=== PATIENT | female | born 1960 | race Caucasian/White ===

== ENCOUNTER 2018-04-04 18:26 | Emergency (ER) | payer OTHER, SELFPAY ==
[2018-04-04 18:27] VITALS: BP 137/61; PULSE 64; RESP 18; TEMP 36.5; O2SAT 97; BMI 24.3
--- NOTE | 2018-04-04 19:52 | EKG12_ITS ---
Test Reason : BACK Blood Pressure : / mmHG Vent. Rate : 052 BPM Atrial Rate : 052 BPM P-R Int : 156 ms QRS Dur : 074 ms QT Int : 450 ms P-R-T Axes : 055 053 041 degrees QTc Int : 418 ms Sinus bradycardia Otherwise normal ECG Confirmed by LESLY MAGUIRE ([id number]), supervising film or videotape editor ZHOU ROSA ([id number]) on 04/09/2018 8:47:24 AM Referred By: GAEL Confirmed By:LESLY MAGUIRE
--- NOTE | 2018-04-04 19:53 | CT_ITS ---
STUDY: CTA CHEST REASON FOR EXAM: Female, 58 years old. Back pain. RADIATION DOSAGE (If Supplied By Facility): CTDIvol = ( 9.168 ) mGy, DLP = ( 445.59 ) mGycm TECHNIQUE: The examination was performed with the intravenous administration of 75ML ml of Isovue 370 contrast material. Post-processing of the angiographic images was performed, with multiplanar reformation and 3D reconstruction. Individualized dose optimization techniques were used for this CT. COMPARISON: None. FINDINGS: Normal enhancement of the main pulmonary artery and right and left pulmonary arteries. Normal enhancement of the bilateral peripheral pulmonary arteries. There is no demonstrated pulmonary embolism. Normal thoracic aorta and visualized great vessels. There is no demonstrated aortic dissection. Normal heart and pericardium. Normal mediastinum. Normal hilar regions. Normal visualized trachea and bronchi. The lungs are hyper expanded, with flattening of the hemidiaphragms. Evidence for mild centrilobular emphysema. Normal pleura. Normal chest wall structures. Normal osseous structures. Normal visualized upper abdomen. CT/CTA Chest W/WO Contrast IMPRESSION: Normal CTA chest examination, without a demonstrated pulmonary embolism or arterial dissection. No evidence of acute chest disease. Electronically Signed: Zaki Alberto MD at 21:31 EDT , Service support ,
--- NOTE | 2018-04-04 19:55 | ED.DCSUM_ITS ---
- ER Visit Summary Date of Service: 04/04/18 Chief Complaint: Back pain History of Present Illness: The patient is a 58 F presenting with back pain. She states it started on Sunday. Pain is in her right mid back. She denies any trauma. 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 She has had pain persistently in her right mid back. She has tried [place] at home. She is in pain management for her lower back. She has not had these symptoms before. She denies bowel or bladder incontinence. Denies numbness or weakness. Denies fever. Denies chest pain or shortness of breath. Denies other complaints. Physical Examination: Vitals are stable. Patient is afebrile. Alert no acute distress. HEENT exam is unremarkable. Neck is supple. Lungs are clear and equal bilaterally. Heart is regular rate and rhythm. Abdomen is soft nontender nondistended. Back: Right paraspinal thoracic muscle tenderness, no midline tenderness Extremities are unremarkable. Skin is warm and dry. No focal neurologic deficit. Normal strength and sensation Remainder of exam is unremarkable. Emergency Department Course and Treatment: Patient is given Dilaudid, Zofran IV. EKG is sinus rate of 73 with no acute ischemic changes. CBC, chemistries unremarkable other than potassium 3.3. Troponin is negative. CTA chest shows no acute process. Patient feels improved on reevaluation. She states she continues to have pain but is much improved. She was given Valium and KCl orally. On reevaluation, patient is now requesting discharge. She states she feels improved. She is given a prescription for flexeril and naprosyn. She is advised to follow-up with her primary care physician. Advised return to the ED for worsening complaints. Disposition: Discharge home Impression: Back spasm This note was generated with PowerFile dictation software. It may contain incorrect words, spelling, and punctuation that were not noted in review of the chart prior to signing ED Disposition - Plan for ED Patient: Chief Complaint: Back Instructions: ED Spasm Back No Trauma Prescriptions: Naproxen [Naprosyn] 500 mg PO BID PRN #20 tablet Cyclobenzaprine [Flexeril] 10 mg PO TID PRN #20 tablet PRN Reason: Muscle Spasm Referrals: Francheska Galvez MD [Primary Care Provider] -
[2018-04-04] MEDS: HYDROmorphone 1 MG/ML Syringe IV (20:09)
[2018-04-04] MEDS: Ondansetron 4 MG/2 ML Vial IV (20:09)
[2018-04-04 20:33] LABS: Absolute Lymphocyte Count 1.42 X10^3/ul (0.83-4.51); Absolute Neutrophil Count 8.1 X10^3/uL (2.0-7.7); Basophil# 0.02 X10^3/uL; Basophil% 0.2 % (0-1); Eosinophil# 0.04 X10^3/uL; Eosinophils% 0.4 % (0-5); Hematocrit 40.7 % (37-47); Hemoglobin 13.5 g/dl (12.0-15.0); Lymphocyte # 1.42 X10^3/ul (4.0); Lymphocyte % 13.5 % (19-41); Mean Corp Hgb Conc 33.2 g/gl (32-36); Mean Corpuscular Hgb 30.1 pg (27.0-32.0); Mean Corpuscular Volume 90.6 fL (81-99); Mean Platelet Vol. 9.5 fl (6.2-12.0); Monocyte# 0.86 X10^3/uL; Monocyte% 8.2 % (0-10); Neutrophil # 8.13 X10^3/uL (2.7-7.7); Neutrophil % 77.6 % (47-70); Platelet Count 202 K/mm3 (150-450); RBC Distribution Width CV 12.8 % (11.6-14.6); RBC Distribution Width SD 41.8 fl (35.1-43.9); Red Blood Count 4.49 M/mm3 (4.2-5.4); White Blood Count 10.5 K/mm3 (4.4-11.0)
[2018-04-04 20:36] LABS: POSITIVE COUNT NO; POSITIVE DIFFERENTIAL NO; POSITIVE MORPHOLOGY NO
[2018-04-04 20:55] LABS: Anion Gap 5 (5-15); BUN 12 mg/dL (7-18); BUN/Creat Ratio 18.3 RATIO (10-20); Chloride 102 mmol/L (98-107); Creatinine, Serum 0.65 mg/dL (0.55-1.02); EST Glomerular Filtration Rate 98 mL/min (>60); Est Glom Filt Rate - Afr Amer 119 mL/min (>60); Estimated Creatinine Clearance 82.82 ml/min; Glucose 109 mg/dL (74-106); Potassium 3.3 mmol/L (3.5-5.1); Sodium Level 136 mmol/L (136-145)
[2018-04-04 20:59] VITALS: RESP 14
[2018-04-04] MEDS: diazePAM 5 MG Tablet PO (21:44)
[2018-04-04 22:00] VITALS: BP 132/62; PULSE 58; RESP 16; O2SAT 97
--- NOTE | 2018-04-04 22:55 | ED.DEP ---
ED Disposition - Plan for ED Patient: Chief Complaint: Back Instructions: ED Spasm Back No Trauma Prescriptions: Naproxen [Naprosyn] 500 mg PO BID PRN #20 tablet Cyclobenzaprine [Flexeril] 10 mg PO TID PRN #20 tablet PRN Reason: Muscle Spasm Referrals: Francheska Galvez MD [Primary Care Provider] -
[2018-04-04 23:09] VITALS: BP 130/79; PULSE 60; RESP 16; O2SAT 99
== END 2018-04-04 23:10 | disposition home or self-care (01) ==
LOC: ED 21:44
PROVIDERS: Emergency Provider Emergency Medicine; Family Provider Family Medicine; PCP Family Medicine
DX: M62.830 Muscle spasm of back (principal); M54.9 Dorsalgia, unspecified
CPT/HCPCS: 71275; 80048; 84484; 85025; 93005; 96374; 96375; 99285; Q9967; A4216; J2405

== ENCOUNTER → 2018-07-22 14:09 | Outpatient (CLI) | payer OTHER, SELFPAY ==
[2018-07-22 16:02] LABS: Absolute Lymphocyte Count 1.98 X10^3/ul (0.83-4.51); Basophil# 0.03 X10^3/uL; Basophil% 0.5 % (0-1); Eosinophil# 0.09 X10^3/uL; Eosinophils% 1.4 % (0-5); Hematocrit 40.2 % (37-47); Hemoglobin 13.8 g/dl (12.0-15.0); Lymphocyte # 1.98 X10^3/ul (4.0); Mean Corp Hgb Conc 34.3 g/gl (32-36); Mean Corpuscular Hgb 30.5 pg (27.0-32.0); Mean Corpuscular Volume 88.9 fL (81-99); Mean Platelet Vol. 10.5 fl (6.2-12.0); Monocyte# 0.54 X10^3/uL; Monocyte% 8.2 % (0-10); Neutrophil # 3.96 X10^3/uL (2.7-7.7); Neutrophil % 59.7 % (47-70); Platelet Count 235 K/mm3 (150-450); RBC Distribution Width CV 12.3 % (11.6-14.6); RBC Distribution Width SD 39.5 fl (35.1-43.9); Red Blood Count 4.52 M/mm3 (4.2-5.4); White Blood Count 6.6 K/mm3 (4.4-11.0)
[2018-07-22 16:03] LABS: POSITIVE COUNT NO; POSITIVE DIFFERENTIAL NO; POSITIVE MORPHOLOGY NO
[2018-07-22 16:30] LABS: ALB/GLOB Ratio 1.3 RATIO (0.9-2.4); AST(SGOT) 9 U/L (15-37); Alanine Aminotransfer ALT/SGPT 23 U/L (13-56); Albumin, Serum 3.8 g/dL (3.2-5.0); Alkaline Phosphatase 81 U/L (45-117); Anion Gap 6 (5-15); BUN 17 mg/dL (7-18); BUN/Creat Ratio 20.9 RATIO (10-20); Chloride 108 mmol/L (98-107); Creatinine, Serum 0.81 mg/dL (0.55-1.02); EST Glomerular Filtration Rate 76 mL/min (>60); Est Glom Filt Rate - Afr Amer 92 mL/min (>60); Glucose 87 mg/dL (74-106); Potassium 4.1 mmol/L (3.5-5.1); Protein, Total 6.8 g/dL (6.4-8.2); Sodium Level 141 mmol/L (136-145); Thyroid Stim Hormone (TSH) 0.94 uIU/mL (0.358-3.74)
== END ==
PROVIDERS: Family Provider Family Medicine; PCP Family Medicine; Visit Provider Nurse Practitioner Adult Health
DX: R53.83 Other fatigue (principal); R25.2 Cramp and spasm
CPT/HCPCS: 36415; 80053; 83735; 84443; 85025

== ENCOUNTER → 2019-05-14 15:25 | Outpatient (CLI) | payer OTHER, SELFPAY ==
[2019-05-13 10:19] VITALS: BMI 24.3
[2019-05-19 12:07] LABS: Age Gdln ACOG Testing 30-65 (.)
[2019-05-19 16:32] LABS: HPV APTIMA, High Risk Negative (Negative)
[2019-05-19 23:06] LABS: HPV Reflexed? YES, CHARGE PATIENT
== END ==
PROVIDERS: Visit Provider Obstetrics & Gynecology
DX: Z12.4 Encounter for screening for malignant neoplasm of cervix (principal)
CPT/HCPCS: 87624; 88175; G0145

== ENCOUNTER 2019-05-23 08:30 | Outpatient (RCR) | payer OTHER, SELFPAY ==
[2019-05-13 10:19] VITALS: BMI 24.3
--- NOTE | 2019-05-19 08:54 | HP.PTEVAL ---
Patient's Visit Information BEATRIZ FOREMAN is a 59 year old F referred to Physical Therapy by Natalia Will DO with a diagnosis of R shoulder RC syndrome. Date of Evaluation: 05/19/19 Physical Therapist: SHELBI Mcdonald - Visit Plan Frequency: 2x /Week Duration: 4-6 Weeks Plan: 2X/ weeks for 4-6 weeks for R RC and scapular strengthening with HEP and modalities as needed. - Subjective Findings: Pt has had problems over the years on the R with impigement. She injured her R shoulder again and Sunday is the first day that she had no pain in a couple of weeks. She got a cortizone shot last week (Sunday) and that made it feel better. She is still weak. She can not really lift it. 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 SHe thinks that is how she injured it by cleaning a lot overhead. No N&T. Pt had trouble sleeping before the shot and trouble sleeping on that side. 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 R shoulder AROM: Full AROM ( increase pain with IR). L shoulder AROM: Full AROM. + empty can test on the R, slight + HK test. R SHLD MMT: Flex 3+/5, ABD 3+/5, ER 3+/5, IR 4/5. L shld MMT: 4/5 flex, abd, ER and IR - Goals Goal 1:: I HEP Goal Time Frame: 4-6 Weeks Goal 2:: Increase R MMT by 1/2 muscle grade ( at time of eval: R SHLD MMT: Flex 3+/5, ABD 3+/5, ER 3+/5, IR 4/5). Goal Time Frame: 4-6 Weeks Goal 3:: Be able to use her arm for overall activities at work without pain and weakness Goal Time Frame: 4-6 Weeks - Rehabilitation Potential Rehabilitation Potential: Good - Anticipated Interventions Patient/Client Instruction: Educate patient on: Condition, Plan of Care For the Purpose of:: To decrease pain, To increase ROM, To improve nutrient delivery to tissue, To improve muscle performance and motor function, To improve ability to perform ADL's, To increase tolerance to activity/condition/position, To improve performance and independence with ADL's, To improve ability of physical actions for home/community/work/leisure, To improve health of tissue Therapeutic Exercise to Include: Strength training, Postural training, Passive ROM, Active ROM, Scapular Strength/Stabilization For the Purpose of:: To decrease pain, To improve muscle performance and motor function, To improve ability to perform ADL's, To increase tolerance to activity/condition/position, To improve performance and independence with ADL's, To improve ability of physical actions for home/community/work/leisure, To improve health of tissue Cryotherapy (ice pack, ice massage): Yes Ultrasound (thermal/non thermal): Yes For the Purpose of:: To decrease pain, To improve nutrient delivery to tissue Thank you for the opportunity to evaluate your patient. For Medicare and Medicare HMO plans, please review the plan of care and approve it. It will need to be FAXED BACK to us at [phone] for Medicare purposes. For Medicare only, by signing this I certify the plan of care. Please let me know if there are questions or concerns regarding this plan of care. Physician Signature: Date:
--- NOTE | 2019-09-02 12:29 | HP.PT.NRP ---
BEATRIZ FOREMAN was seen in my office for initial evaluation on 05/19/19. The following Plan of Care was established for this patient: Initial Frequency: 2x /Week Initial Duration: 4-6 Weeks Patient/Client Instruction: Educate patient on: Condition, Plan of Care For the Purpose of:: To decrease pain, To increase ROM, To improve nutrient delivery to tissue, To improve muscle performance and motor function, To improve ability to perform ADL's, To increase tolerance to activity/condition/position, To improve performance and independence with ADL's, To improve ability of physical actions for home/community/work/leisure, To improve health of tissue Therapeutic Exercise to Include: Strength training, Postural training, Passive ROM, Active ROM, Scapular Strength/Stabilization For the Purpose of:: To decrease pain, To improve muscle performance and motor function, To improve ability to perform ADL's, To increase tolerance to activity/condition/position, To improve performance and independence with ADL's, To improve ability of physical actions for home/community/work/leisure, To improve health of tissue Cryotherapy (ice pack, ice massage): Yes Ultrasound (thermal/non thermal): Yes For the Purpose of:: To decrease pain, To improve nutrient delivery to tissue This patient was last seen in our office 05/23/19. Pertinent comments regarding their Physical therapy will appear below: Pt cancelled her last appointment scheduled with us due to illness. She has a HEP. She will be discharged at this time. At this point I will be discontinuing this patient from physical therapy. I would be happy to see this patient again in the future if found appropriate by the physician. Thank you! Amy Johnston, MPT
== END 2019-05-23 19:00 | disposition home or self-care (01) ==
LOC: PT 08:30
PROVIDERS: Family Provider Family Medicine; PCP Family Medicine; Referring Provider Orthopaedic Surgery; Visit Provider Orthopaedic Surgery
DX: M75.101 Unspecified rotator cuff tear or rupture of right shoulder, not specified as traumatic (principal)
CPT/HCPCS: 97110; 97161

== ENCOUNTER → 2019-05-29 06:54 | Outpatient (CLI) | payer OTHER, SELFPAY ==
[2019-05-13 10:19] VITALS: BMI 24.3
--- NOTE | 2019-05-29 06:57 | BI_ITS ---
MAMMOGRAPHY - BILATERAL SCREENING REASON FOR EXAM: Female, 59 years old. Routine annual screening examination. PERTINENT HISTORY: Non-contributory. Remote left stereotactic breast biopsy. TECHNIQUE: Digital bilateral breast gustavo (3D mammographic acquisition) in the CC and MLO projections. 2-D mediolateral oblique (MLO) and craniocaudad (CC) views of both breasts were obtained. CAD: Full Field Digital Mammography with Computer Added Detection was performed. COMPARISON: Comparison is made with prior study dated September 22, 2016 and September 01, 2013. FINDINGS: Breast Composition: There are scattered areas of fibroglandular density. There are no dominant masses or suspicious calcifications. There is a 5.6 mm well-defined nodule in the retroareolar region of the left breast. Correlation with ultrasound is recommended for further evaluation. A tissue clip marker is seen in the upper deep lateral portion of the left breast. No other significant abnormalities are identified. BI/SCREEN MAMM (CAD) W/GUSTAVO BILAT IMPRESSION: 5.6 mm well-defined nodule in the retroareolar region of the left breast as described. Correlation with ultrasound is recommended. ASSESSMENT CATEGORY: BIRADS Category 0: Incomplete. Need additional imaging evaluation. A letter regarding these results will be sent to the patient by the facility within 30 days. Approximately 10% of breast cancers are not detected by mammography. A normal mammogram should not delay biopsy of a clinically suspicious abnormality. [id number] Electronically Signed: Michel Sutton, at 9:16 EST , Service support ,
== END ==
PROVIDERS: Family Provider Family Medicine; PCP Family Medicine; Referring Provider Obstetrics & Gynecology; Visit Provider Obstetrics & Gynecology
DX: Z12.31 Encounter for screening mammogram for malignant neoplasm of breast (principal)
CPT/HCPCS: 77063; 77067

== ENCOUNTER → 2019-05-30 07:56 | Outpatient (CLI) | payer OTHER, SELFPAY ==
[2019-05-13 10:19] VITALS: BMI 24.3
--- NOTE | 2019-05-30 07:57 | US_ITS ---
STUDY: ULTRASOUND BREAST - LEFT REASON FOR EXAM: Female, 59 years old. Abnormal screening mammogram. TECHNIQUE: Axial and longitudinal images of the LEFT breast were performed with a high resolution ultrasound transducer. # OF IMAGES: 8 COMPARISON: Comparison is made with prior mammogram dated May 29, 2019. FINDINGS: LEFT Breast: The mammographic abnormality corresponds to a 4 mm x 3 mm x 3 mm cyst at the 9:00 position of the breast at 1 cm from nipple. US/Breast Limited Unilateral IMPRESSION: The mammographic abnormality corresponds to a 4 mm x 3 mm x 3 mm cyst at the 9:00 position of the breast at 1 cm from the nipple. ASSESSMENT CATEGORY: BIRADS Category 2: Benign. A letter regarding these results will be sent to the patient by the facility within 30 days. Electronically Signed: Michel Sutton, at 14:02 EST , Service support ,
== END ==
PROVIDERS: Family Provider Family Medicine; PCP Family Medicine; Referring Provider Obstetrics & Gynecology; Visit Provider Obstetrics & Gynecology
DX: N63.20 Unspecified lump in the left breast, unspecified quadrant (principal)
CPT/HCPCS: 76642

== ENCOUNTER → 2021-10-07 | Outpatient (CLI) | payer BC, SELFPAY ==
--- NOTE | 2021-10-07 08:06 | BI_ITS ---
MAMMOGRAPHY - BILATERAL SCREENING REASON FOR EXAM: Female, 61 years old. Routine annual screening examination. PERTINENT HISTORY: Sister with breast cancer. Remote left stereotactic breast biopsy. TECHNIQUE: Digital bilateral breast gustavo (3D mammographic acquisition) in the CC and MLO projections. 2-D mediolateral oblique (MLO) and craniocaudad (CC) views of both breasts were obtained. CAD: Full Field Digital Mammography with Computer Added Detection was performed. COMPARISON: Comparison is made with prior study dated 05/29/2019 and 09/22/2016. FINDINGS: Breast Composition: There are scattered areas of fibroglandular density. There are no dominant masses or suspicious calcifications. A tissue clip marker is seen in the deep upper lateral aspect of the left breast. The previously seen 5.6 mm well-defined nodule in the retroareolar region of the left breast has decreased in size in comparison with the history of cyst seen on prior sonogram. No other significant abnormalities are identified. There has been no significant change since the prior study. BI/SCRN MAMM (CAD)W/GUSTAVO BILAT IMPRESSION: Stable bilateral screening mammogram. Yearly follow-up mammogram recommended. (A) ASSESSMENT CATEGORY: BIRADS Category 2: Benign. A letter regarding these results will be sent to the patient by the facility within 30 days. Approximately 10% of breast cancers are not detected by mammography. A normal mammogram should not delay biopsy of a clinically suspicious abnormality. [id number] Electronically Signed: Michel Sutton MD at 9:20 EDT ,
== END | disposition home or self-care (01) ==
LOC: OPBI 08:05
PROVIDERS: PCP Family Medicine; Visit Provider Family Medicine
DX: Z12.31 Encounter for screening mammogram for malignant neoplasm of breast (principal)
CPT/HCPCS: 77063; 77067

== ENCOUNTER → 2022-10-10 | Outpatient (CLI) | payer BC, SELFPAY ==
--- NOTE | 2022-10-10 09:05 | BI_ITS ---
MAMMOGRAPHY - BILATERAL SCREENING REASON FOR EXAM: Female, 62 years old. Routine annual screening examination. PERTINENT HISTORY: Sister with breast cancer. Prior left stereotactic breast biopsy. TECHNIQUE: Digital bilateral breast gustavo (3D mammographic acquisition) in the CC and MLO projections. 2-D mediolateral oblique (MLO) and craniocaudad (CC) views of both breasts were obtained. CAD: Full Field Digital Mammography with Computer Added Detection was performed. COMPARISON: Comparison is made with prior examination October 07, 2021 and May 29, 2019. FINDINGS: Breast Composition: There are scattered areas of fibroglandular density. There are no dominant masses or suspicious calcifications. A tissue clip marker is once again seen in the deep upper lateral aspect of the left breast. Stable 5 mm well-defined nodule in the retroareolar region of the left breast. No other significant abnormalities are identified. There has been no significant change since the prior study. BI/SCRN MAMM (CAD)W/GUSTAVO BILAT IMPRESSION: Stable bilateral screening mammogram. Yearly follow-up mammogram recommended. (A) ASSESSMENT CATEGORY: BIRADS Category 2: Benign. A letter regarding these results will be sent to the patient by the facility within 30 days. Approximately 10% of breast cancers are not detected by mammography. A normal mammogram should not delay biopsy of a clinically suspicious abnormality. [id number] Electronically Signed: Michel Sutton MD at 10:09 EDT ,
== END | disposition home or self-care (01) ==
LOC: OPBI 09:04
PROVIDERS: PCP Family Medicine; Referring Provider Family Medicine; Visit Provider Family Medicine
DX: Z00.00 Encounter for general adult medical examination without abnormal findings (principal); Z12.31 Encounter for screening mammogram for malignant neoplasm of breast; Z80.3 Family history of malignant neoplasm of breast
CPT/HCPCS: 77063; 77067

== ENCOUNTER 2024-07-22 09:00 | Outpatient (RCR) | payer MEDICARE, OTHER, SELFPAY ==
--- NOTE | 2024-03-21 15:33 | HP.PTEVAL ---
Patient's Visit Information Visit Information Visit Information: BEATRIZ FOREMAN is a 64 year old F referred to Physical Therapy by Dr. Parveen Kaba MD with a diagnosis of BACK AND LEG PAIN. Date of Evaluation: 03/21/24 Physical Therapist: Yuriy Whatley PT, Cert MDT, OCS Visit Plan Frequency: 2x /Week Duration: 4 Weeks Plan: PT INTERVENTIONS AQUATIC THERAPY DLS ,POSTURAL EX'S LE FLEXABILITY,LUMBAR ROM AND STRENGTHENING BLE Subjective Subjective: This 64 y/o female presents [facility] with back and leg pain. Patient has lumbar right radiculopathy for has had several years. Patient had lumbar laminectomy discectomy 2010. Patient has back pain ever since. No recent imaging .Patient has been seeing pain management 3 weeks ago. Patient had epidural injection ~ 3 weeks. Patient pain located symmetrical . Described ache . Aggravates sitting ,bending ,lifting . Alleviating better walking. Coughing/sneezing-. Bowel/bladder-. Denies paresthesia/tingling except 3 toes right foot. Patient sleeping well . Medication over counter. Patient pain affects housework tasks. Patient condition affects QOL and function. Patient goals to decrease back pain. SOCIAL: single VOCATION: retired Pain Bilateral Back: Pain Intensity (Out of 10): 8 Pain Intensity Range: 10 Objective Objective: POSTURE: mild forward posture PALAPTION: tender PSIS FLEXABILITY: hamstrings min tight NEURO: denies paresthesia/tingling , MMT: quads/hams/hip 4/5 ,ankle 5/5 Special Tests L/S Slump test left side: Negative L/S Slump test right side: Negative L/S Left Straight Leg Raise: Negative L/S Right Straight Leg Raise: Negative Lumbar Standing: Flexion - Mechanical Response: No effect Lumbar Standing: Flexion - Symptoms During Testing: No effect Lumbar Standing: Flexion - Symptoms After Testing: No effect Lumbar Standing: Extension - Mechanical Response: No effect Lumbar Standing: Extension - Symptoms During Testing: No effect Lumbar Standing: Extension - Symptoms After Testing: No effect Lumbar Standing: Right Side Glides - Mechanical Response: No effect Lumbar Standing: Right Side [place] - Symptoms During Testing: No effect Lumbar Standing: Right Side [place] - Symptoms After Testing: No effect Lumbar Standing: Left Side [place] - Mechanical Response: No effect Lumbar Standing: Left Side [place] - Symptoms During Testing: No effect Lumbar Standing: Left Side [place] - Symptoms After Testing: No effect Lumbar Lying: Flexion - Mechanical Response: No effect Lumbar Lying: Flexion - Symptoms During Testing: Decreases Lumbar Lying: Flexion - Symptoms After Testing: Better Balance/Special Test Scores Oswestry Low Back Score: 20 Goals Goal 1:: Patient to be I with Aquatic therapy program Goal Time Frame: 4-6 Weeks Goal 2:: Patient to demonstrate 40 % improvement with less pain and improved function Goal Time Frame: 4-6 Weeks Goal 3:: Patient to improve lumbar ROM for function of recovery to put on shoes and ADLS Goal Time Frame: 4-6 Weeks Goal 4:: Patient to improve back oswestry score by 5 points to improve QOL Goal Time Frame: 4-6 Weeks Rehabilitation Potential Physical Therapy Diagnosis: Patient has lumbar pain with h/o lumbar surgery with laminectomy/fusion 2011 with pain increases with positioning and affects housework tasks thus benefit from skilled PT Rehabilitation Potential: Good Anticipated Interventions Patient/Client Instruction: Educate patient on: Condition and Plan of Care For the Purpose of:: To decrease pain, To increase ROM, To improve muscle performance and motor function, To improve ability to perform ADL's, To increase tolerance to activity/condition/position, To improve ability of physical actions for home/community/work/leisure, To improve health of tissue, To decrease soft tissue restriction, To increase flexibility/ROM and To improve endurance Therapeutic Exercise to Include: Strength training, Endurance training, Postural training, Flexibilty training, Active ROM and Dynamic Lumbar Stabilization For the Purpose of:: To decrease pain, To increase ROM, To improve muscle performance and motor function, To improve ability of physical actions for home/community/work/leisure, To improve health of tissue, To decrease soft tissue restriction, To increase flexibility/ROM, To reduce risk of recurrence and To improve tolerance to ADL's Text: Thank you for the opportunity to evaluate your patient. For Medicare and Medicare HMO plans, please review the plan of care and approve it. It will need to be FAXED BACK to us at [phone] for Medicare purposes. For Medicare only, by signing this I certify the plan of care. Please let me know if there are questions or concerns regarding this plan of care. Physician Signature: Date:
--- NOTE | 2024-04-18 08:20 | HP.PTREVAL_ITS ---
Re-Evaluation Intro: Dr. Parveen Kaba MD, It has been my pleasure to treat BEATRIZ FOREMAN over the last 10 visits for BACK AND LEG PAIN. Please see the progress note below for an update on the physical therapy plan of care! Subjective Subjective: Aquatic Therapy is helping with pain and balance Objective Objective/Function: POSTURE: mild forward posture PALAPTION: tender PSIS * Patient wiil cont to benefit from skilled PT with goals appropriate and progressing * FLEXABILITY: hamstrings min tight NEURO: denies paresthesia/tingling , MMT: quads/hams/hip 4/5 ,ankle 5/5 LUMBAR ROM: flexion min loss ,extension WFL ,side glides min loss Plan Plan Plan: PT INTERVENTIONS AQUATIC THERAPY DLS ,POSTURAL EX'S LE FLEXABILITY,LUMBAR ROM AND STRENGTHENING BLE Balance/Gait/Functional tests Balance/Special Test Scores Oswestry Low Back Score: 19 Goals Goals Goal 1:: Patient to be I with Aquatic therapy program Goal Time Frame: 4-6 Weeks Goal Progress: Progressing Goal 2:: Patient to demonstrate 40 % improvement with less pain and improved function Goal Time Frame: 4-6 Weeks Goal Progress: Progressing Goal 3:: Patient to improve lumbar ROM for function of recovery to put on shoes and ADLS Goal Time Frame: 4-6 Weeks Goal Progress: Progressing Goal 4:: Patient to improve back oswestry score by 5 points to improve QOL Goal Time Frame: 4-6 Weeks Goal Progress: Progressing Anticipated Interventions Anticipated Interventions Patient/Client Instruction: Educate patient on: Condition and Plan of Care For the Purpose of:: To decrease pain, To increase ROM, To improve muscle performance and motor function, To improve ability to perform ADL's, To increase tolerance to activity/condition/position, To improve ability of physical actions for home/community/work/leisure, To improve health of tissue, To decrease soft tissue restriction, To increase flexibility/ROM and To improve endurance Therapeutic Exercise to Include: Strength training, Endurance training, Postural training, Flexibilty training, Active ROM and Dynamic Lumbar Stabilization For the Purpose of:: To decrease pain, To increase ROM, To improve muscle performance and motor function, To improve ability of physical actions for home/community/work/leisure, To improve health of tissue, To decrease soft tissue restriction, To increase flexibility/ROM, To reduce risk of recurrence and To improve tolerance to ADL's Re-Evaluation Ending Re-evaluation ending: Please do not hesitate to contact me at [phone] by phone or Fax: if you have questions or concerns regarding this new plan of care! Sincerely, Yuriy Whatley, PT, Cert MDT, OCS
--- NOTE | 2024-04-18 14:12 | HP.PTREVAL ---
Re-Evaluation Intro: Dr. Parveen Kaba MD, It has been my pleasure to treat [employer]EM[employer] over the last 10 visits for BACK AND LEG PAIN. Please see the progress note below for an update on the physical therapy plan of care! Subjective Subjective: Aquatic Therapy is helping with pain and balance Objective Objective/Function: * Patient wiil cont to benefit from skilled PT with goals appropriate and progressing * PALAPTION: unremarkable GAIT: reciprocal pattern FLEXABILITY: hamstrings min tight NEURO: denies paresthesia/tingling , MMT: quads/hams/hip 4/5 ,ankle 5/5 LUMBAR ROM: flexion min loss ,extension WFL ,side glides min los Plan Plan Plan: PT INTERVENTIONS AQUATIC THERAPY DLS ,POSTURAL EX'S LE FLEXABILITY,LUMBAR ROM AND STRENGTHENING BLE Balance/Gait/Functional tests Balance/Special Test Scores Oswestry Low Back Score: 19 Goals Goals Goal 1:: Patient to be I with Aquatic therapy program Goal Time Frame: 4-6 Weeks Goal Progress: Progressing Goal 2:: Patient to demonstrate 40 % improvement with less pain and improved function Goal Time Frame: 4-6 Weeks Goal Progress: Progressing Goal 3:: Patient to improve lumbar ROM for function of recovery to put on shoes and ADLS Goal Time Frame: 4-6 Weeks Goal Progress: Progressing Goal 4:: Patient to improve back oswestry score by 5 points to improve QOL Goal Time Frame: 4-6 Weeks Goal Progress: Progressing Anticipated Interventions Anticipated Interventions Patient/Client Instruction: Educate patient on: Condition and Plan of Care For the Purpose of:: To decrease pain, To increase ROM, To improve muscle performance and motor function, To improve ability to perform ADL's, To increase tolerance to activity/condition/position, To improve ability of physical actions for home/community/work/leisure, To improve health of tissue, To decrease soft tissue restriction, To increase flexibility/ROM and To improve endurance Therapeutic Exercise to Include: Strength training, Endurance training, Postural training, Flexibilty training, Active ROM and Dynamic Lumbar Stabilization For the Purpose of:: To decrease pain, To increase ROM, To improve muscle performance and motor function, To improve ability of physical actions for home/community/work/leisure, To improve health of tissue, To decrease soft tissue restriction, To increase flexibility/ROM, To reduce risk of recurrence and To improve tolerance to ADL's Re-Evaluation Ending Re-evaluation ending: Please do not hesitate to contact me at [phone] by phone or if you have questions or concerns regarding this new plan of care! Sincerely, Yuriy Whatley, PT, Cert MDT, OCS
--- NOTE | 2024-05-27 08:26 | HP.PTREVAL ---
Re-Evaluation Intro: Dr. Parveen Kaba MD, It has been my pleasure to treat [employer] over the last 18 visits for BACK AND LEG PAIN. Please see the progress note below for an update on the physical therapy plan of care! Subjective Subjective: Patient had injection in spine 2 months Patient would like to transition to land and gym program and balance Objective Objective/Function: * Patient wiil cont to benefit from skilled PT with goals appropriate and will progress to land based therapy in progression to gym program and balance * PALAPTION: unremarkable GAIT: reciprocal pattern FLEXABILITY: hamstrings min tight NEURO: denies paresthesia/tingling , MMT: quads/hams/hip 4/5 ,ankle 5/5 LUMBAR ROM: flexion WFL ,extension WFL ,side glides min los Plan Plan Plan: WORK TOWARDS A GYM BASED PROGRAM PT INTERVENTIONS DLS ,POSTURAL EX'S LE FLEXABILITY,LUMBAR ROM , BALANCE PROGRAM STRENGTHENING BLE AND FUNCTIONAL STRENGTH Balance/Gait/Functional tests Balance/Special Test Scores Oswestry Low Back Score: 19 Goals Goals Goal 1:: Patient to be I with HEP Goal Time Frame: 4-6 Weeks Goal Progress: Progressing Goal 2:: Patient to demonstrate 80 % improvement with less pain and improved function (New goal) Goal Time Frame: 4-6 Weeks Goal Progress: Progressing Goal 3:: Patient to improve lumbar ROM for function of recovery to put on shoes and ADLS Goal Time Frame: 4-6 Weeks Goal Progress: Progressing Goal 4:: Patient to improve back oswestry score by 5 points to improve QOL Goal Time Frame: 4-6 Weeks Goal Progress: Progressing Anticipated Interventions Anticipated Interventions Patient/Client Instruction: Educate patient on: Condition and Plan of Care For the Purpose of:: To decrease pain, To increase ROM, To improve muscle performance and motor function, To improve ability to perform ADL's, To increase tolerance to activity/condition/position, To improve ability of physical actions for home/community/work/leisure, To improve health of tissue, To decrease soft tissue restriction, To increase flexibility/ROM and To improve endurance Therapeutic Exercise to Include: Strength training, Endurance training, Postural training, Flexibilty training, Active ROM and Dynamic Lumbar Stabilization For the Purpose of:: To decrease pain, To increase ROM, To improve muscle performance and motor function, To improve ability of physical actions for home/community/work/leisure, To improve health of tissue, To decrease soft tissue restriction, To increase flexibility/ROM, To reduce risk of recurrence and To improve tolerance to ADL's Re-Evaluation Ending Re-evaluation ending: Please do not hesitate to contact me at [phone] by phone or if you have questions or concerns regarding this new plan of care! Sincerely, Yuriy Whatley, PT, Cert MDT, OCS
--- NOTE | 2024-06-24 08:50 | HP.PTREVAL ---
Re-Evaluation Intro: Dr. Parveen Kaba MD, It has been my pleasure to treat [employer] over the last 24 visits for BACK AND LEG PAIN. Please see the progress note below for an update on the physical therapy plan of care! Subjective Subjective: Doing well ,getting stronger less pain Patient fells as though balance is off Objective Objective/Function: * Patient wiil cont to benefit from skilled PT with goals appropriate and will progress to land based therapy in progression to gym program and balance PALAPTION: unremarkable GAIT: reciprocal pattern FLEXABILITY: hamstrings min tight NEURO: denies paresthesia/tingling , MMT: quads/hams/hip 4/5 ,ankle 5/5 LUMBAR ROM: flexion WFL ,extension WFL ,side glides min los CATSIBE AND FUNCTIONAL GAIT ASSESSMENT NORMAL Plan Plan Plan: WORK TOWARDS A GYM BASED PROGRAM PT INTERVENTIONS DLS ,POSTURAL EX'S LE FLEXABILITY,LUMBAR ROM , BALANCE PROGRAM STRENGTHENING BLE AND FUNCTIONAL STRENGTH Balance/Gait/Functional tests Balance/Special Test Scores Functional Gait Assessment Score: 30 % Disability: 0 CATSIB Score (Max score 120 seconds): 120 Oswestry Low Back Score: 18 Goals Goals Goal 1:: Patient to be I with HEP Goal Time Frame: 4-6 Weeks Goal Progress: Progressing Goal 2:: Patient to demonstrate 90 % improvement with less pain and improved function (New goal) Goal Time Frame: 4-6 Weeks Goal Progress: Progressing Goal 3:: Patient to improve lumbar ROM for function of recovery to put on shoes and ADLS Goal Time Frame: 4-6 Weeks Goal Progress: Progressing Goal 4:: Patient to improve back oswestry score by 5 points to improve QOL Goal Time Frame: 4-6 Weeks Goal Progress: Progressing Anticipated Interventions Anticipated Interventions Patient/Client Instruction: Educate patient on: Condition and Plan of Care For the Purpose of:: To decrease pain, To increase ROM, To improve muscle performance and motor function, To improve ability to perform ADL's, To increase tolerance to activity/condition/position, To improve ability of physical actions for home/community/work/leisure, To improve health of tissue, To decrease soft tissue restriction, To increase flexibility/ROM and To improve endurance Therapeutic Exercise to Include: Strength training, Endurance training, Postural training, Flexibilty training, Active ROM and Dynamic Lumbar Stabilization For the Purpose of:: To decrease pain, To increase ROM, To improve muscle performance and motor function, To improve ability of physical actions for home/community/work/leisure, To improve health of tissue, To decrease soft tissue restriction, To increase flexibility/ROM, To reduce risk of recurrence and To improve tolerance to ADL's Re-Evaluation Ending Re-evaluation ending: Please do not hesitate to contact me at [phone] by phone or if you have questions or concerns regarding this new plan of care! Sincerely, Yuriy Whatley, PT, Cert MDT, OCS
== END 2024-07-22 19:00 | disposition home or self-care (01) ==
LOC: PT 09:00
PROVIDERS: PCP Family Medicine; Referring Provider Anesthesiology Pain Medicine; Visit Provider Anesthesiology Pain Medicine
DX: M54.9 Dorsalgia, unspecified (principal); M79.606 Pain in leg, unspecified
CPT/HCPCS: 97110; 97113; 97162; 97530